=== PATIENT | male | born 1940 ===

== ENCOUNTER → 2017-05-27 | Outpatient (REF) ==
--- NOTE | 2017-05-27 14:05 | Diagnostic Imaging Report ---
INDICATION: Trauma, right wrist pain 3 views of the right wrist shows no fracture, dislocation or other acute bony abnormality. There are degenerative changes at the carpometacarpal joint of the thumb. There is vascular calcification present. IMPRESSION: No acute abnormality is seen. Dictated by: Dictated on workstation # [id number]
--- NOTE | 2017-05-27 14:08 | Diagnostic Imaging Report ---
INDICATION: Injury, right forearm pain 2 views of the right forearm shows no fracture, dislocation or other acute abnormality. IMPRESSION: No acute abnormality is seen. Dictated by: Dictated on workstation # [id number]
== END | disposition home or self-care (01) ==
LOC: OCC 13:26
PROVIDERS: ATTEND Nurse Practitioner Family
CPT/HCPCS: 73090; 73110